=== PATIENT | female | born 1980 | race African-American/Black ===

== ENCOUNTER 2018-10-22 00:28 | Emergency (ER) | payer OTHER ==
[~2018-10-22] VITALS: Ht 157.5 cm; Wt 95.3 kg
[2018-10-22] MEDS ORDERED: NKM (00:37)
[2018-10-22 00:41] VITALS: BP 133/78
[2018-10-22] MEDS ORDERED: Bactrim-DS 1 tab ORAL ONE (00:45)
[2018-10-22] MEDS ORDERED: Bacitracin Oint UD TOPIC ONE (00:45)
[2018-10-22] MEDS ORDERED: MUPIROCIN22 GM TOPIC (01:02)
[2018-10-22] MEDS ORDERED: BACTRIM DS TAB1 EAC1 ORAL (01:02)
--- NOTE | 2018-10-22 01:02 | Emergency Room Report ---
History of Present Illness General Chief Complaint: Skin Rash/Abscess Source: Patient Present Illness [facility] This a 37-year-old female with no past medical history. She presents with chief complaint of a spider bite to the right knee. She felt some itching yesterday. Now more swollen and red. Also some fluid drainage. Did not see any spider biting her. Pain is 5 out of 10. No nausea no vomiting. No fever chills. Walking without any difficulty. Worse with scratching. No other complaint. Allergies: Coded Allergies: No Known Allergies (Unverified , 10/22/18) Patient History Past Medical History: none, see triage record, old chart reviewed Past Surgical History: none Pertinent Family History: none Social History: Denies: smoking Last Menstrual Period: Sep Now: No Immunizations: other Reviewed Nursing Documentation: PMH: Agreed; PSxH: Agreed Nursing Documentation-PMH Past Medical History: No Stated History Review of Systems Eye: Denies: eye pain, blurred vision ENT: Denies: ear pain, nose congestion, throat swelling Respiratory: Denies: cough, shortness of breath Cardiovascular: Denies: chest pain, palpitations Gastrointestinal: Denies: abdominal pain, diarrhea, nausea, vomiting Musculoskeletal: Denies: back pain, joint pain Skin: Reports: rash Neurological: Denies: headache, numbness Endocrine: Denies: increased thirst, increased urine Hematologic/Lymphatic: Denies: easy bruising All Other Systems: negative except mentioned in HPI Physical Exam Vital Signs Date Time Temp Pulse Resp B/P (MAP) Pulse Ox O2 Delivery O2 Flow Rate FiO2 10/22/18 00:30 98.2 100 18 133/78 98 Room Air vitals normal Sp02 EP Interpretation: reviewed, normal General Appearance: well appearing, no apparent distress, alert Head: normocephalic, atraumatic Eyes: bilateral eye PERRL, bilateral eye EOMI ENT: hearing grossly normal, normal pharynx Neck: full range of motion, supple, no meningismus Respiratory: chest non-tender, lungs clear, normal breath sounds Cardiovascular #1: regular rate, rhythm, no murmur Gastrointestinal: normal bowel sounds, non tender, no mass, no organomegaly, no bruit, non-distended Musculoskeletal: back normal, gait/station normal, normal range of motion, other - Right knee: Laterally there is an indurated area of about 4 cm. There is some small clear fluid draining from the center. No abscess. Full range of motion of the knee. No crepitance. No fluctuant. Neurologic: alert, oriented x3 Psychiatric: mood/affect normal Skin: warm/dry Medical Decision Making Diagnostic Impression: Primary Impression: Cellulitis of knee, left ER Course patient presents with cellulitis of left knee. This is most likely staph/MRSA. No evidence of necrotizing fasciitis or abscess that can be I and D. We'll discharge home. No evidence of any septic joint. Last Vital Signs Date Time Temp Pulse Resp B/P (MAP) Pulse Ox O2 Delivery O2 Flow Rate FiO2 10/22/18 00:41 98.2 86 18 133/78 98 Room Air Status: improved Disposition: HOME, SELF-CARE Condition: Stable Scripts Trimethoprim/Sulfamethoxazole 160/800* (BACTRIM DS TABLET*) 1 Each Tablet 1 TAB ORAL Q12H, #14 TAB 0 Refills Prov: Chuck Miranda MD 10/22/18 Mupirocin* (MUPIROCIN*) 22 Gm Oint...g. 1 APPLIC TOPIC THREE TIMES A DAY, #22 GM Prov: Chuck Miranda MD 10/22/18 Referrals: [facility],REFERRING (PCP) Additional Instructions: Keep area clean. Clean first with hydrogen peroxide and then apply antibiotic ointment. Follow-up your doctor in 7 days. Return if symptom worsen. Chuck Miranda MD Oct 22, 2018 01:02
[2018-10-22 01:05] VITALS: BP 133/78
== END 2018-10-22 01:07 | disposition home or self-care (01) ==
LOC: EMR 00:50
DX: T63.301A Toxic effect of unspecified spider venom, accidental (unintentional), initial encounter (principal); Y92.9 Unspecified place or not applicable; L03.115 Cellulitis of right lower limb
CPT/HCPCS: 87070; 87205; 99283